=== PATIENT | male | born 1950 | race Caucasian/White ===

== ENCOUNTER 2018-07-18 15:12 | Outpatient (REF) | payer OTHER, SELFPAY ==
[2018-07-20 10:35] LABS: PSA, Diagnostic 0.8 ng/ml (0-4.5)
== END 2018-07-18 15:32 ==
LOC: LBN 15:12
PROVIDERS: Visit Provider Urology
DX: N40.1 Benign prostatic hyperplasia with lower urinary tract symptoms (principal)
CPT/HCPCS: 84153

== ENCOUNTER 2020-03-26 11:50 | Outpatient (REF) | payer OTHER, SELFPAY ==
[2020-03-26 20:01] LABS: Calculated LDL 80 mg/dL (<100); Cholesterol 196 mg/dL (<200); HDL Cholesterol 40 mg/dL (40-60); Triglyceride 383 mg/dL (<150)
[2020-03-26 20:40] LABS: Hemoglobin A1C 5.1 % (<5.7)
[2020-04-02 10:21] LABS: PSA, Screening 0.8 ng/mL (0-4.5)
== END 2020-03-26 12:10 ==
LOC: NCHCN 11:50
PROVIDERS: PCP Nurse Practitioner Family; Visit Provider Nurse Practitioner Family
DX: Z13.220 Encounter for screening for lipoid disorders (principal); N40.0 Benign prostatic hyperplasia without lower urinary tract symptoms; R73.9 Hyperglycemia, unspecified
CPT/HCPCS: 80061; 84153; 83036

== ENCOUNTER 2020-09-01 11:08 | Outpatient (REF) | payer OTHER, SELFPAY ==
[2020-09-02 14:13] LABS: COVID-19 RT-PCR UVMMC Result Negative (Negative)
== END 2020-09-01 11:09 | disposition home or self-care (01) ==
LOC: NCHCN 11:08
PROVIDERS: PCP Nurse Practitioner Family; Visit Provider Nurse Practitioner Family
DX: Z20.822 Contact with and (suspected) exposure to COVID-19 (principal); J06.9 Acute upper respiratory infection, unspecified
CPT/HCPCS: U0003

== ENCOUNTER 2021-04-01 09:07 | Outpatient (REF) | payer OTHER, SELFPAY ==
[2021-04-01 19:51] LABS: ALT 27 U/L (16-63); AST 19 U/L (15-37); Albumin 4.2 g/dL (3.4-5.0); Alkaline Phosphatase 76 U/L (46-116); Anion Gap 10.5 mmol/L (3-11); BUN 15 mg/dL (7-18); Bilirubin, Total 0.7 mg/dL (0.2-1.0); CO2 27.5 mmol/L (21.0-32.0); Calculated LDL 83 mg/dL (<100); Chloride 105 mmol/L (98-107); Cholesterol 162 mg/dL (<200); Glucose 106 mg/dL (74-106); HDL Cholesterol 42 mg/dL (40-60); Potassium 4.2 mmol/L (3.5-5.1); Sodium 143 mmol/L (136-145); Total Protein 7.6 g/dL (6.4-8.2); Triglyceride 186 mg/dL (<150)
== END 2021-04-01 09:08 | disposition home or self-care (01) ==
LOC: NCHCN 09:07
PROVIDERS: PCP Nurse Practitioner Family; Visit Provider Nurse Practitioner Family
DX: E78.5 Hyperlipidemia, unspecified (principal); R03.0 Elevated blood-pressure reading, without diagnosis of hypertension
CPT/HCPCS: 80053; 80061

== ENCOUNTER 2022-04-04 18:40 | Outpatient (REF) | payer OTHER, SELFPAY ==
[2022-04-04 20:18] LABS: ALT 22 U/L (16-63); AST 19 U/L (15-37); Albumin 4.1 g/dL (3.4-5.0); Alkaline Phosphatase 90 U/L (46-116); Anion Gap 8.4 mmol/L (3-11); BUN 13 mg/dL (7-18); Bilirubin, Total 0.6 mg/dL (0.2-1.0); CO2 24.6 mmol/L (21.0-32.0); CREATININE 1.2 mg/dL (0.70-1.30); Calcium 8.8 mg/dL (8.5-10.1); Chloride 103 mmol/L (98-107); Estimated GFR 65.46 (mL/min/1.73m2); Glucose 101 mg/dL (74-106); Potassium 4.3 mmol/L (3.5-5.1); Sodium 136 mmol/L (136-145)
[2022-04-05 18:17] LABS: PSA, Screening 1.6 ng/mL (<=4.5)
== END 2022-04-04 18:41 | disposition home or self-care (01) ==
LOC: NCHCN 18:40
PROVIDERS: PCP Nurse Practitioner Family; Visit Provider Nurse Practitioner Family
DX: N40.0 Benign prostatic hyperplasia without lower urinary tract symptoms (principal); I10 Essential (primary) hypertension
CPT/HCPCS: 80053; 84153

== ENCOUNTER 2023-04-05 11:18 | Outpatient (REF) | payer MEDICARE, SELFPAY ==
--- NOTE | 2023-04-05 10:30 | SKI_PTH ---
PATIENT: Harpal Rodriguez LOC: [facility]#:[id number] AGE/SX: 72/M ROOM: RE04/05/[address]: Macrina Santillan : 1950 BED: DIS: 04/05/2023 SPEC #: [id number] RECD: 04/06/23 12:48 STATUS: MARYAM REQ #: [id number] FRIEDA: 04/05/23 10:[address]: Sallie Santillan DEPT: Surgical Specimen RECD BY: Sri Gonzalez ENTERED: 04/06/23 12:48 SP TYPE: KRIS OLIVARES DR: Seda Johnson Tissues: 1 - SKIN BIOPSY(SHAVE/PUNCH) Procedures: SKIN LEVEL 4 Comments: [id number]
[2023-04-05 20:18] LABS: Anion Gap 9.6 mmol/L (3-11); BUN 16 mg/dL (7-18); CO2 24.4 mmol/L (21.0-32.0); CREATININE 1.2 mg/dL (0.70-1.30); Calcium 9.1 mg/dL (8.5-10.1); Chloride 102 mmol/L (98-107); Estimated GFR 65.06 (mL/min/1.73m2); Glucose 109 mg/dL (74-106); Potassium 4.2 mmol/L (3.5-5.1); Sodium 136 mmol/L (136-145)
== END 2023-04-05 11:19 | disposition home or self-care (01) ==
LOC: NCHCN 11:18
PROVIDERS: PCP Nurse Practitioner Family; Visit Provider Nurse Practitioner Family
DX: L82.1 Other seborrheic keratosis (principal)
CPT/HCPCS: 80048; 88305

== ENCOUNTER 2023-10-02 11:30 | Outpatient (REF) | payer MEDICARE, SELFPAY ==
[2023-10-03 17:54] LABS: PSA, Diagnostic 0.9 ng/mL (<=6.5)
== END 2023-10-02 11:31 | disposition home or self-care (01) ==
LOC: NCHCN 11:30
PROVIDERS: PCP Nurse Practitioner Family; Visit Provider Nurse Practitioner Family
DX: N40.1 Benign prostatic hyperplasia with lower urinary tract symptoms (principal)
CPT/HCPCS: 84153

== ENCOUNTER 2024-04-01 11:26 | Outpatient (REF) | payer MEDICARE, SELFPAY ==
[2024-04-01 18:39] LABS: ALT 26 U/L (16-63); AST 19 U/L (15-37); Alkaline Phosphatase 82 U/L (46-116); Anion Gap 6.4 mmol/L (3-11); BUN 15 mg/dL (7-18); Bilirubin, Total 0.65 mg/dL (0.2-1.0); CO2 29.6 mmol/L (21.0-32.0); CREATININE 1.2 mg/dL (0.70-1.30); Calculated LDL 70 mg/dL (<100); Chloride 105 mmol/L (98-107); Cholesterol 178 mg/dL (<200); Estimated GFR 64.65 (mL/min/1.73m2); Glucose 104 mg/dL (74-106); HDL Cholesterol 47 mg/dL (40-60); Potassium 4.6 mmol/L (3.5-5.1); Sodium 141 mmol/L (136-145); Total Protein 8.1 g/dL (6.4-8.2); Triglyceride 305 mg/dL (<150)
== END 2024-04-01 11:27 | disposition home or self-care (01) ==
LOC: NCHCN 11:26
PROVIDERS: PCP Nurse Practitioner Family; Visit Provider Nurse Practitioner Family
DX: I10 Essential (primary) hypertension (principal)
CPT/HCPCS: 80053; 80061

== ENCOUNTER → 2024-04-04 11:00 | Outpatient (BNVA) | payer MEDICARE, SELFPAY | PROVIDERS: PCP Nurse Practitioner Family; Referring Provider Nurse Practitioner Family; Visit Provider Nurse Practitioner Gerontology | DX: N41.1 Chronic prostatitis (principal); N40.1 Benign prostatic hyperplasia with lower urinary tract symptoms; R39.12 Poor urinary stream; R97.20 Elevated prostate specific antigen [PSA] | CPT/HCPCS: 51798; 81003; 99205 ==

== ENCOUNTER → 2025-04-01 09:38 | Outpatient (BNVA) | payer MEDICARE, SELFPAY | PROVIDERS: PCP Nurse Practitioner Family; Referring Provider Nurse Practitioner Family; Visit Provider Nurse Practitioner Gerontology | DX: N40.0 Benign prostatic hyperplasia without lower urinary tract symptoms (principal); R97.20 Elevated prostate specific antigen [PSA] | CPT/HCPCS: 99213; 51798 ==

== ENCOUNTER 2025-04-02 16:20 | Outpatient (REF) | payer MEDICARE, SELFPAY ==
[2025-04-02 20:57] LABS: ALT 41 U/L (16-63); AST 23 U/L (15-37); Albumin 4.1 g/dL (3.4-5.0); Alkaline Phosphatase 87 U/L (46-116); Anion Gap 9.5 mmol/L (3-11); BUN 16 mg/dL (7-18); Bilirubin, Total 0.6 mg/dL (0.2-1.0); CO2 26.5 mmol/L (21.0-32.0); Calcium 9.0 mg/dL (8.5-10.1); Chloride 102 mmol/L (98-107); Cholesterol 194 mg/dL (<200); Glucose 100 mg/dL (74-106); HDL Cholesterol 43 mg/dL (>or=40); Potassium 4.4 mmol/L (3.5-5.1); Sodium 138 mmol/L (136-145); Total Protein 7.8 g/dL (6.4-8.2)
[2025-04-03 18:18] LABS: PSA, Diagnostic 1.0 ng/mL (<=6.5)
== END 2025-04-02 16:21 | disposition home or self-care (01) ==
LOC: NCHCN 16:20
PROVIDERS: PCP Nurse Practitioner Family; Visit Provider Nurse Practitioner Family
DX: N40.1 Benign prostatic hyperplasia with lower urinary tract symptoms (principal); I10 Essential (primary) hypertension; E78.5 Hyperlipidemia, unspecified
CPT/HCPCS: 80053; 80061; 84153